=== PATIENT | female | born 1955 | race Caucasian/White ===

== ENCOUNTER → 2016-11-01 | Outpatient (CLI) | payer OTHER ==
[~2016-11-01] MED LIST: ALBU0.08 INH; ALBUAER2 INH; ASPI81CH2 PO; ATOR-24 PO; COEN1CAP28 PO; CYCL5TAB PO; FLUO10CA15 PO; FOLI1TAB7 PO; FURO40TA3 PO; GLC/500 PO; HYDR-5688 PO; LORA-741 PO; LOSA50TA6 PO; METH2.5T PO; METO1TAB69 PO; METO2.5T PO; PANT40TA PO; POLYSOL4 OP; POTA20TA16 PO; PRED10TA PO; TRIA1SPR4 NAE
--- NOTE | 2016-11-01 15:28 | DIAGNOSTIC IMAGING REPORT ---
CHEST 2 VIEWS ROUTINE CLINICAL HISTORY: D86.9 [id number] [id number] Pulmonary [id number] lung nodule COMPARISON STUDY: 05/22/2016 FINDINGS: No evidence for cardiac enlargement. Diaphragms are smooth. Lungs are considered clear. IMPRESSION: No acute process. Lungs are clear. The above report was generated using voice recognition software. It may contain grammatical, syntax or spelling errors. Electronically signed by: Nilo Escobedo M.D. 11/01/2016 3:27 PM Dictated Date/Time: 11/01/2016 3:26 PM
== END | disposition home or self-care (01) ==
LOC: C.RAD1850 15:17
PROVIDERS: ATTEND Physician Assistant
DX: D86.9 Sarcoidosis, unspecified (principal); J45.909 Unspecified asthma, uncomplicated; R91.1 Solitary pulmonary nodule

== ENCOUNTER → 2017-02-07 | Outpatient (CLI) | payer OTHER ==
[~2017-02-07] MED LIST changes: -FOLI1TAB7 PO; +FOLI1TAB8 PO; +METO100T44 PO; -METO1TAB69 PO
--- NOTE | 2017-02-07 15:31 | DIAGNOSTIC IMAGING REPORT ---
CHEST 2 VIEWS ROUTINE CLINICAL HISTORY: ASTHMA COMPARISON STUDY: 11/01/2016 FINDINGS: The cardiac and mediastinal contours are normal. There is no evidence of focal pulmonary consolidation. There is no evidence of failure. No pleural effusions are visualized.[ An electronic device projects of the left chest, possibly representing an event recorder. IMPRESSION: No active disease in the chest. Electronically signed by: Bear Castro M.D. 02/07/2017 3:29 PM Dictated Date/Time: 02/07/2017 3:28 PM
== END | disposition home or self-care (01) ==
LOC: C.RAD1850 15:19
PROVIDERS: ATTEND Physician Assistant
DX: J45.909 Unspecified asthma, uncomplicated (principal)